=== PATIENT | female | born 2005 | race Caucasian/White ===

== ENCOUNTER 2024-10-15 20:39 | Emergency (ER) | payer SELFPAY ==
[2024-10-15] MEDS: Metoclopramide 10 MG/2 ML SDV IVPUSH ONE (23:49)
[2024-10-15] MEDS: Sodium Chloride 0.9% 1,000 ML IV ONE (23:49)
[2024-10-15] MEDS: Ketorolac 30 MG/ML SDV IVPUSH ONE (23:50)
== END 2024-10-16 01:01 | disposition home or self-care (01) ==
LOC: MW.ED 20:39
DX: G43.909 Migraine, unspecified, not intractable, without status migrainosus (principal); R42 Dizziness and giddiness; E10.9 Type 1 diabetes mellitus without complications; Z79.4 Long term (current) use of insulin
CPT/HCPCS: 82947; 96361; 96374; 96375; 99284; J1100; J1885; J2765; J7030; 99282